=== PATIENT | male | born 1945 | race Two or more races ===

== ENCOUNTER 2021-08-15 15:45 | Outpatient (REF) | payer MEDICARE, BC, SELFPAY ==
--- NOTE | ~2021-08-15 | XR_ITS ---
EXAMINATION: XR FOOT, RIGHT CLINICAL INFORMATION: Contusion of right foot. COMPARISON: None TECHNIQUE: AP, lateral, and oblique views of the right foot. FINDINGS: No fracture or dislocation. Alignment is maintained. Mild soft tissue swelling at the forefoot. Osteophytes are seen at the talonavicular joint. Moderate hypertrophic spurring of the plantar aponeurosis to the calcaneus. The joint effusion. XR/XR foot RT min 3V IMPRESSION: Soft tissue swelling. No acute osseous abnormality. Plantar heel spur.
== END 2021-08-15 15:46 | disposition home or self-care (01) ==
LOC: HO.HMGCX 15:45
PROVIDERS: PCP Internal Medicine; Visit Provider Internal Medicine
DX: S90.31XA Contusion of right foot, initial encounter (principal)
CPT/HCPCS: 73630

== ENCOUNTER 2021-09-12 09:03 | Outpatient (REF) | payer MEDICARE, BC, SELFPAY ==
--- NOTE | ~2021-09-12 | XR_ITS ---
EXAMINATION: XR FOOT, RIGHT CLINICAL INFORMATION: Right foot pain. COMPARISON: 08/15/2021. TECHNIQUE: AP, lateral, and oblique views of the right foot. FINDINGS: There is no acute fracture or dislocation. The tarsal bones are normally aligned. Mild degenerative changes are seen first metatarsophalangeal joint as well as in the distal interphalangeal joint of the second digit without interval change. There is a small plantar calcaneal spur. Mild to moderate atherosclerosis is noted. There is mild soft tissue swelling. XR/XR foot RT min 3V IMPRESSION: Mild soft tissue swelling and degenerative changes as detailed above similar to the previous study without overt acute abnormality.
== END 2021-09-12 09:04 | disposition home or self-care (01) ==
LOC: HO.XRAY 09:03
PROVIDERS: PCP Internal Medicine; Visit Provider Physician Assistant
DX: M79.671 Pain in right foot (principal)
CPT/HCPCS: 73630

== ENCOUNTER 2021-10-06 10:26 | Outpatient (REF) | payer MEDICARE, BC, SELFPAY ==
--- NOTE | ~2021-10-06 | XR_ITS ---
EXAMINATION: XR FOOT, RIGHT CLINICAL INFORMATION: Plantar fascial 5 pneumatosis COMPARISON: None TECHNIQUE: AP, lateral, and oblique views of the right foot. FINDINGS: There is small to moderate size calcaneal heel enthesophyte. No visible acute fracture, dislocation or subluxation seen. No bony erosive changes. There is mild spurring along the anterior tibiotalar joint. XR/XR foot RT min 3V IMPRESSION: Small to moderate size calcaneal heel and anterior talotibial or joint and enthesophyte. No visible acute fracture, dislocation seen. No plantar fascial thickening on this x-ray.
== END 2021-10-06 10:27 | disposition home or self-care (01) ==
LOC: HO.HMGCX 10:26
PROVIDERS: Visit Provider Physician Assistant Medical
DX: M72.2 Plantar fascial fibromatosis (principal)
CPT/HCPCS: 73630

== ENCOUNTER 2022-08-08 09:41 | Outpatient (REF) | payer MEDICARE, BC, SELFPAY ==
[2022-08-08 15:27] LABS: Influenza A PCR NEGATIVE (Negative); Influenza B PCR NEGATIVE (Negative); Resp Syncy Virus RNA Qual PCR NEGATIVE (Negative); SARS COV2 PCR INHOUSE NEGATIVE (Negative)
== END 2022-08-08 09:42 | disposition home or self-care (01) ==
LOC: HO.LAB 09:41
PROVIDERS: Visit Provider Nurse Practitioner Family
DX: Z20.822 Contact with and (suspected) exposure to COVID-19 (principal); R09.89 Other specified symptoms and signs involving the circulatory and respiratory systems
CPT/HCPCS: 0241U